=== PATIENT | male | born 1970 | race African-American/Black ===

== ENCOUNTER 2024-06-05 21:30 | Emergency (ER) | payer OTHER ==
[~2024-06-05] VITALS: Ht 177.8 cm; Wt 75.0 kg
[2024-06-05 21:33] VITALS: O2SAT 95
[2024-06-05] MEDS: FUROSEMIDE 40MG/4ML VIAL IV ONE (22:19)
[2024-06-06 02:02] LABS: CHLORIDE 106 mEq/L (98-107); POTASSIUM 3.9 mEq/L (3.5-5.1); SODIUM 138 mEq/L (136-145)
[2024-06-06 02:03] LABS: CALCIUM 9.1 mg/dL (8.7-10.4); CARBON DIOXIDE 23 mEq/L (21-32)
[2024-06-06 02:08] LABS: CREATININE 2.9 mg/dL (0.6-1.3); GLUCOSE 98 mg/dL (70-105); UREA NITROGEN BLOOD 41 mg/dL (9-23)
[2024-06-06 02:09] LABS: TROPONIN I HIGH SENSITIVITY 33 ng/L (3.0-53)
[2024-06-06 02:14] LABS: BASOPHILS % 0.7 % (0.0-2.0); DIFFERENTIAL COMMENT 0; EOSINOPHILS % 3.2 % (0.0-5.0); HEMATOCRIT. 31.5 % (42.0-52.0); HEMOGLOBIN. 10.3 g/dL (14.0-18.0); LYMPHOCYTES % 17.3 % (20.0-50.0); MEAN CORPUSCULAR HEMOGLOBIN 32.8 pg (28.0-32.0); MEAN CORPUSCULAR HGB CONC 32.8 g/dL (31.0-37.0); MEAN CORPUSCULAR VOLUME 100.1 fL (80.0-94.0); MONOCYTES % 10.1 % (2.0-8.0); NEUTROPHILS % 68.7 % (40.0-76.0); PLATELET 128 x1000/uL (130-400); RED BLOOD CELL COUNT 3.15 mill/uL (4.7-6.1); RED CELL DISTRIBUTION WIDTH 13.4 % (11.6-14.6); WHITE BLOOD COUNT 6.9 x1000/uL (4.5-11.0)
[2024-06-06] MEDS ORDERED: DOCUSATE SODIUM 100MG CAPSULE PO PRN (05:30)
[2024-06-06] MEDS ORDERED: IPRATROPIUM/ALBUTEROL 0.5-3(2.5)MG/3ML NEB HHN PRN (05:30)
[2024-06-06] MEDS ORDERED: GUAIFENESIN 200MG/10ML SUGAR FREE UDC PO PRN (05:30)
[2024-06-06] MEDS ORDERED: ACETAMINOPHEN 325MG TABLET PO PRN ×2 (05:30)
[2024-06-06] MEDS ORDERED: CLONIDINE 0.1MG TABLET PO PRN (05:30)
[2024-06-06] MEDS ORDERED: ONDANSETRON HCL 4MG/2ML INJ IV PRN (05:30)
[2024-06-06] MEDS: ASPIRIN 81MG TABLET PO ONE (06:08)
[2024-06-06 07:30] VITALS: BP 131/87; PULSE 64; RESP 20; TEMP 37.05852; O2SAT 94
[2024-06-06] MEDS ORDERED: ENOXAPARIN 30MG/0.3ML SYR SUBCUT SCH (09:00)
[2024-06-06] MEDS ORDERED: ISOSORBIDE MONONITRATE 30MG TABLET SR 24HR PO SCH (09:00)
[2024-06-06] MEDS ORDERED: ASPIRIN 81MG TABLET PO SCH (09:00)
[2024-06-06] MEDS ORDERED: HYDRALAZINE HCL 25MG TABLET PO SCH (09:00)
[2024-06-06] MEDS ORDERED: FUROSEMIDE 40MG/4ML VIAL IVP SCH (09:00)
[2024-06-06] MEDS ORDERED: ATORVASTATIN CALCIUM 40MG TABLET PO SCH (21:00)
== END 2024-06-06 08:43 | disposition left against medical advice (07) ==
LOC: ER 21:30 → CANBEDREQ 06-06 08:33 → ER 06-06 08:43
DX: I11.0 Hypertensive heart disease with heart failure (principal); I50.9 Heart failure, unspecified; J18.9 Pneumonia, unspecified organism; F17.210 Nicotine dependence, cigarettes, uncomplicated; J96.91 Respiratory failure, unspecified with hypoxia; Z79.899 Other long term (current) drug therapy
CPT/HCPCS: 36415; 71045; 96374; 99285; 80048; 83880; 85025; 84484; J1940; Z7610